=== PATIENT | female | born 1975 | race Native Hawaiian/Other Pacific Islander ===

== ENCOUNTER → 2018-06-21 17:34 | Outpatient (CLI) | payer OTHER | END | disposition home or self-care (01) | LOC: AMB 17:34 | DX: Z04.8 Encounter for examination and observation for other specified reasons (principal); V58.0XXA Driver of pick-up truck or van injured in noncollision transport accident in nontraffic accident, initial encounter; Y93.89 Activity, other specified; Y92.488 Other paved roadways as the place of occurrence of the external cause ==